=== PATIENT | male | born 1975 | race Hispanic/Latino ===

== ENCOUNTER 2018-08-13 20:24 | Emergency (ER) | payer OTHER ==
[~2018-08-13] VITALS: Ht 180.3 cm; Wt 86.2 kg
--- OUTSIDE RECORDS SUMMARY | 2018-08-13 20:26 | XMS REPORT | Continuity of Care Document ---
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, left knee 06/26/2017 09/28/2017 [facility] LT KNEE Active 03/15/2017 [facility] Pain in left knee 09/28/2017 [facility] Medications Medication Details Route Status Patient Instructions Ordering Provider Order Date Source {21 (Methylprednisolone 4 MG Oral Tablet [Medrol]) } Pack [Medrol Dosepak] See Instructions, PO, Take by mouth as directed on label., # 1 Pack, 0 Refill(s), Pharmacy: [facility] Active 01/21/2018 [facility] Amoxicillin 500 MG / Clavulanate 125 MG Oral Tablet [Augmentin 500-mg] 1 tab, PO, TID, # 20 tab, 0 Refill(s), Pharmacy: [facility] Active 11/22/2017 [facility] Ceftriaxone 1 gm, Route: IM, Drug form: PDR/INJ, ONCE, Dosing Weight 87.841, kg, Start date: 11/22/17 9:35:00 CDT, Stop date: 11/22/17 9:35:00 CDT Inactive 11/22/2017 [facility] Allergies, Adverse Reactions, Alerts Substance Category Reaction Severity Reaction type Status Date Reported Comments Source Immunizations Immunization Date Given Site Status Last Updated Comments Source Results Order Name Results Value Reference Range Date Interpretation Comments Source Vital Signs Vital Sign Value Date Comments Source Heart Rate 67 01/21/2018 [facility] Respitory Rate 14 01/21/2018 [facility] Temperature Oral (F) 97.0 F 01/21/2018 [facility] Height 180.34 cm 01/21/2018 [facility] BMI Calculated 27.53 01/21/2018 [facility] Weight 89.545 01/21/2018 [facility] Systolic (mm Hg) 133 01/21/2018 [facility] Diastolic (mm Hg) 84 01/21/2018 [facility] Height 180.34 cm 11/26/2017 [facility] Weight 87.443 11/26/2017 [facility] BMI Calculated 26.89 11/26/2017 [facility] Systolic (mm Hg) 121 11/26/2017 [facility] Diastolic (mm Hg) 81 11/26/2017 [facility] Heart Rate 116 11/26/2017 [facility] Respitory Rate 14 11/26/2017 [facility] Temperature Oral (F) 97.2 F 11/26/2017 [facility] Weight 87.841 11/22/2017 [facility] BMI Calculated 27.01 11/22/2017 [facility] Height 180.34 cm 11/22/2017 [facility] Heart Rate 114 11/22/2017 [facility] Respitory Rate 14 11/22/2017 [facility] Temperature Oral (F) 102.3 F 11/22/2017 [facility] Systolic (mm Hg) 132 11/22/2017 [facility] Diastolic (mm Hg) 85 11/22/2017 [facility] Encounters Location Location Details Encounter Type Encounter Number Reason For Visit Attending Provider ADM Date DC Date Status Source [facility] Patients [id number] Jayson Bai 03/15/2017 04/14/2017 [facility] OP [facility] Patients [id number] Jayson Bai 04/19/2017 05/19/2017 [facility] Patients [id number] Jayson Bai 05/24/2017 06/23/2017 [facility] Out[facility] [id number] ALOK STILES 11/22/2017 Active [facility] Outpatient [id number] Alok Stiles 11/22/2017 11/23/2017 [facility] Outpatient [id number] ALOK STILES 11/26/2017 Active [facility] Outpatient [id number] Alok Stiles 11/26/2017 11/27/2017 [facility] Outpatient [id number] ALOK STILES 01/20/2018 Active [facility] Ambulatory Pre-Reg [id number] Alok Stiles 01/20/2018 01/20/2018 [facility] Outpatient [id number] ALOK STILES 01/21/2018 Active [facility] Outpatient [id number] Alok Stiles 01/21/2018 01/22/2018 [facility] Outpatient [id number] ALOK STILES 01/27/2018 Active [facility] Outpatient [id number] ALOK STILES 08/12/2018 Active [facility] Procedures Procedure Code Date Perfomer Comments Source Repair of meniscus [id number] 01/12/2017 [facility]
--- OUTSIDE RECORDS SUMMARY | 2018-08-13 20:26 | XMS REPORT | Summary of Care ---
Author Author [facility] Organization [facility] Address Unknown Phone Unavailable Encounter HQ Jamesntr_mahogany(MARIA TERESA) [id number] Date(s): 03/15/17 - 04/13/17 [facility] Discharge Disposition: Home or Self Care Attending Physician: Jayosn Bai MD Vital Signs No data available for this section Problem List No data available for this section Allergies, Adverse Reactions, Alerts No data available for this section Medications No data available for this section Results No data available for this section Immunizations No data available for this section Procedures No data available for this section Social History No data available for this section Assessment and Plan No data available for this section
--- OUTSIDE RECORDS SUMMARY | 2018-08-13 20:26 | XMS REPORT | Summary of Care ---
Author Author [facility] Organization [facility] Address Unknown Phone Unavailable Encounter HQ Angier_mahogany(FIN) [id number] Date(s): 01/21/18 - 01/21/18 [facility] [address] [place] [address], [address] [place] [address]- [phone] Discharge Disposition: Home or Self Care Attending Physician: Alok Rae MD Vital Signs Most recent to 1 oldest [Reference Range]: Height 180.34 cm (01/21/18 11:20 AM) Temperature Oral 97.0 DegF [96.4-99.1 DegF] (01/21/18 11:20 AM) Blood Pressure 133/84 mmHg [90-140/60-90 mmHg] (01/21/18 11:20 AM) Respiratory Rate 14 BRMIN [14-20 BRMIN] (01/21/18 11:20 AM) Peripheral Pulse 67 bpm Rate [60-100 bpm] (01/21/18 11:20 AM) Weight 89.545 kg (01/21/18 11:20 AM) Body Mass Index 27.53 m2 (01/21/18 11:20 AM) Problem List No data available for this section Allergies, Adverse Reactions, Alerts Substance Reaction Severity Status NKDA Active Medications Medrol Dosepak 4 mg oral tablet See Instructions, PO, Take by mouth as directed on label., # 1 Pack, 0 Refill(s) , Pharmacy: [facility] Start Date: 01/21/18 Stop Date: 01/27/18 Status: Ordered Results No data available for this section Immunizations No data available for this section Procedures Procedure Date Related Diagnosis Body Site Status Repair of meniscus 01/2017 Completed Social History Social History Type Response Substance Abuse Use: None. Exercise Exercise duration: 0. Employment/School Status: Employed. 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 Alcohol Current, Type Beer.1 Smoking Status Former smoker; Type: Cigarettes; Exposure to Tobacco Smoke None; Cigarette Smoking Last 365 Days No; Reg Smoking Cessation Counseling No entered on: 01/21/18 1socially Assessment and Plan No data available for this section
--- OUTSIDE RECORDS SUMMARY | 2018-08-13 20:26 | XMS REPORT | Summary of Care ---
Author Author [facility] Organization [facility] Address Unknown Phone Unavailable Encounter HQ Encntr_alias(FIN) [id number] Date(s): 01/20/18 - 01/20/18 [facility] [address] [place] [address], [address] [place] [address]- [phone] Attending Physician: Alok Rae MD Vital Signs No data available for this section Problem List No data available for this section Allergies, Adverse Reactions, Alerts Substance Reaction Severity Status NKDA Active Medications No data available for this section Results No data available for this section Immunizations No data available for this section Procedures Procedure Date Related Diagnosis Body Site Status Repair of meniscus 01/2017 Completed Social History Social History Type Response Substance Abuse Use: None. Exercise Exercise duration: 0. Employment/School Status: Employed. 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 Alcohol Current, Type Beer.1 Smoking Status Former smoker; Type: Cigarettes; Exposure to Tobacco Smoke None; Cigarette Smoking Last 365 Days No; Reg Smoking Cessation Counseling No entered on: 01/21/18 1socially Assessment and Plan No data available for this section
--- OUTSIDE RECORDS SUMMARY | 2018-08-13 20:27 | XMS REPORT | Summary of Care ---
Author Author [facility] Organization [facility] Address Unknown Phone Unavailable Encounter HQ Angier_mahogany(FIN) [id number] Date(s): 11/22/17 - 11/22/17 [facility] [address] [place] [address], [address] [place] [address]- [phone] Discharge Disposition: Home or Self Care Attending Physician: Alok Rae MD Vital Signs Most recent to 1 oldest [Reference Range]: Height 180.34 cm (11/22/17 9:10 AM) Temperature Oral 102.3 DegF [96.4-99.1 DegF] *HI* (11/22/17 9:10 AM) Blood Pressure 132/85 mmHg [90-140/60-90 mmHg] (11/22/17 9:10 AM) Respiratory Rate 14 BRMIN [14-20 BRMIN] (11/22/17 9:10 AM) Peripheral Pulse 114 bpm Rate [60-100 bpm] *HI* (11/22/17 9:10 AM) Weight 87.841 kg (11/22/17 9:10 AM) Body Mass Index 27.01 m2 (11/22/17 9:10 AM) Problem List No data available for this section Allergies, Adverse Reactions, Alerts Substance Reaction Severity Status NKDA Active Medications Augmentin 500 mg oral tablet 1 tab, PO, TID, # 20 tab, 0 Refill(s), Pharmacy: [facility] Start Date: 11/22/17 Stop Date: 11/22/18 Status: Ordered cefTRIAXone 1 gm, Route: IM, Drug form: PDR/INJ, ONCE, Dosing Weight 87.841, kg, Start date: 11/22/17 9:35:00 CDT, Stop date: 11/22/17 9:35:00 CDT Start Date: 11/22/17 Stop Date: 11/22/17 Status: Completed Results No data available for this section Immunizations No data available for this section Procedures Procedure Date Related Diagnosis Body Site Status Repair of meniscus 01/2017 Completed Social History Social History Type Response Substance Abuse Use: None. Exercise Exercise duration: 0. Employment/School Status: Employed. 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 Alcohol Current, Type Beer.1 Smoking Status Former smoker; Type: Cigarettes; Exposure to Tobacco Smoke None; Cigarette Smoking Last 365 Days No; Reg Smoking Cessation Counseling No entered on: 11/22/17 1socially Assessment and Plan No data available for this section
--- OUTSIDE RECORDS SUMMARY | 2018-08-13 20:27 | XMS REPORT | Summary of Care ---
Author Author [facility] Organization [facility] Address Unknown Phone Unavailable Encounter HQ Angier_alioliver(FIN) [id number] Date(s): 05/24/17 - 06/22/[address] [facility] Encounter Diagnosis Derangement of other medial meniscus due to old tear or injury, left knee (Final) - 06/26/17 Pain in left knee (Final) - Discharge Disposition: Home or Self Care Attending Physician: Jayson Bai MD Vital Signs No data available [...]
--- OUTSIDE RECORDS SUMMARY | 2018-08-13 20:27 | XMS REPORT | Summary of Care ---
Author Author [facility] Organization [facility] Address Unknown Phone Unavailable Encounter HQ Encntr_alias(MARIA TERESA) [id number] Date(s): 05/24/17 - 06/22/17 [facility] Discharge Disposition: Home or Self [...]
--- OUTSIDE RECORDS SUMMARY | 2018-08-13 20:27 | XMS REPORT | Summary of Care ---
Author Author [facility] Organization [facility] Address Unknown Phone Unavailable Encounter HQ Encntr_alioliver(FIN) [id number] Date(s): 11/26/17 - 11/26/17 [facility] [address] [place] [address], [address] [place] [address]- [phone] Discharge Disposition: Home or Self Care Attending Physician: Alok Rae MD Vital Signs Most recent to 1 oldest [Reference Range]: Height 180.34 cm (11/26/17 3:03 PM) Temperature Oral 97.2 DegF [96.4-99.1 DegF] (11/26/17 3:03 PM) Blood Pressure 121/81 mmHg [90-140/60-90 mmHg] (11/26/17 3:03 PM) Respiratory Rate 14 BRMIN [14-20 BRMIN] (11/26/17 3:03 PM) Peripheral Pulse 116 bpm Rate [60-100 bpm] *HI* (11/26/17 3:03 PM) Weight 87.443 kg (11/26/17 3:03 PM) Body Mass Index 26.89 m2 (11/26/17 3:03 PM) Problem List No data available for this section Allergies, Adverse Reactions, Alerts Substance Reaction Severity Status NKDA Active Medications No Known Medications Results No data available for this section Immunizations No data available for this section Procedures Procedure Date Related Diagnosis Body Site Status Repair of meniscus 01/2017 Completed Social History Social History Type Response Substance Abuse Use: None. Exercise Exercise duration: 0. Employment/School Status: Employed. 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 Alcohol Current, Type Beer.1 Smoking Status Former smoker; Type: Cigarettes; Exposure to Tobacco Smoke None; Cigarette Smoking Last 365 Days No; Reg Smoking Cessation Counseling No entered on: 11/26/17 1socially Assessment and Plan No data available for this section
[2018-08-13] MEDS ORDERED: METHYLPREDNISOLONE SOD SUCC 125 MG/2ML VIAL IM ONE (21:45)
[2018-08-14 03:24] VITALS: BP 149/94
== END 2018-08-13 22:20 | disposition home or self-care (01) ==
LOC: FSED 20:24
DX: T61.784A Other shellfish poisoning, undetermined, initial encounter (principal); F17.210 Nicotine dependence, cigarettes, uncomplicated
CPT/HCPCS: 96372; 99283; J2930